=== PATIENT | female | born 1985 | race Two or more races ===

== ENCOUNTER 2020-05-10 19:31 | Emergency (ER) | payer OTHER ==
[2020-05-10 19:45] VITALS: BP 134/86; PULSE 88; TEMP 98.7; BMI 25.0
[2020-05-10] MEDS ORDERED: SODIUM CHLORIDE 0.9% 500 ML INFUS.BAG IV ONE (20:50)
[2020-05-10 21:20] LABS: BASO % 0.8 % (0-2.0); EOS % 3.8 % (0-4.5); HEMATOCRIT 38.1 % (32.4-45.2); HEMOGLOBIN 12.7 GM/dL (10.7-15.3); LYMPH % 34.1 % (8-40); MCH 30.2 pg (25.7-33.7); MCHC 33.2 g/dl (32.0-36.0); MEAN CELL VOLUME 90.7 fl (80-96); MEAN PLT VOLUME 9.9 fl (7.5-11.1); MONO % 8.6 % (3.8-10.2); NEUT % 52.7 % (42.8-82.8); PLATELET COUNT 260 K/MM3 (134-434); RDW 13.2 % (11.6-15.6); WHITE BLOOD COUNT 8.2 K/mm3 (4.0-10.0)
[2020-05-10 21:51] LABS: POTASSIUM 3.9 mmol/L (3.5-5.1)
[2020-05-10 21:53] LABS: ALBUMIN 3.6 g/dl (3.4-5.0); CALCIUM 9.7 mg/dL (8.5-10.1)
[2020-05-10 21:54] LABS: BLOOD UREA NITROGEN 12.2 mg/dL (7-18)
[2020-05-10 21:57] LABS: CREATININE 0.7 mg/dL (0.55-1.3)
[2020-05-10 21:59] LABS: BILIRUBIN,TOTAL 0.3 mg/dL (0.2-1); TOT PROT 7.1 g/dl (6.4-8.2)
== END 2020-05-10 23:47 | disposition home or self-care (01) ==
LOC: JER 19:31
DX: O20.0 Threatened abortion (principal); Z3A.11 11 weeks gestation of pregnancy
CPT/HCPCS: 36415; 76801-TC; 80053; 84702; 84703; 85025; 86850; 86900; 86901; 99284-25